=== PATIENT | male | born 1960 | race African-American/Black ===

== ENCOUNTER 2021-11-15 12:51 | Emergency (ER) | payer OTHER ==
[~2021-11-15] VITALS: Ht 180.3 cm; Wt 122.9 kg
[2021-11-15 13:59] LABS: BASOPHILS 0.4 % (0.0-2.0); EOSINOPHILS 2.2 % (0.0-3.0); HEMATOCRIT 41.4 % (42.0-52.0); HEMOGLOBIN 13.6 gm/dL (14.0-18.0); MCH 27.4 pg (26.0-34.0); MCHC 32.8 g/dL (28.0-37.0); MCV 83.5 fL (80.0-100.0); MONOCYTES 5.4 % (1.0-8.0); PLATELET COUNT 242 thou/uL (150-400); RBC 4.95 mil/uL (4.50-6.00); RDW 14.9 % (10.5-14.5); WBC 8.7 thou/uL (4.0-11.0)
[2021-11-15 14:22] LABS: CALCIUM 9.9 mg/dL (8.5-10.1); CREATININE 1.1 mg/dL (0.7-1.3); POTASSIUM 4.3 mmol/L (3.5-5.1)
[2021-11-15 14:32] LABS: ALBUMIN 3.5 g/dL (3.4-5.0); TOTAL BILIRUBIN 0.5 mg/dL (0.2-1.0); TOTAL PROTEIN 8.1 g/dL (6.4-8.2)
[2021-11-15 15:04] LABS: URINE BILIRUBIN NEGATIVE (Negative); URINE BLOOD NEGATIVE (Negative); URINE CLARITY CLEAR; URINE COLOR YELLOW; URINE GLUCOSE-RANDOM* NEGATIVE (Negative); URINE KETONES NEGATIVE (Negative); URINE LEUKOCYTES-REFLEX NEGATIVE (Negative); URINE NITRITE-REFLEX NEGATIVE (Negative); URINE PROTEIN (DIPSTICK) NEGATIVE (Negative); URINE SPECIFIC GRAVITY 1.015 (1.005-1.035); URINE UROBILINOGEN 0.2 E.U./dl (0.2-1.0)
[2021-11-15 16:11] VITALS: BP 122/71
--- NOTE | 2021-11-16 12:50 | EKG ---
[address] [place] [address] ELECTROCARDIOGRAM REPORT Name: MATTHEW ISABEL HAYDER Room #: [facility]P [facility] [id number] Admission: 11/15/21 Attend Phys: Discharge: 11/15/21 Date of : 58 Report #: [id number] [facility] ED Test Date: 2021-11-15 Test Time: 14:18:05 Pat Name: MATTHEW ISABEL Department: Room: Gender: Rn Ostomy: [facility] : 1960 Requested By: Malick Peoples Order Number: [id number] MD: Silverio Gilbert Measurements Intervals [place] Rate: 71 P: 2 UT: 141 QRS: 40 QRSD: 98 T: 7 QT: 382 QTc: 416 Interpretive Statements Sinus rhythm No previous ECG available for comparison Electronically Signed On 11-16-2021 12:50:15 MUSEUM HOST/HOSTESS by Silverio Gilbert [email or web address] <ELECTRONICALLY SIGNED> By: Silverio Gilbert MD, [facility] 11/16/21 1250 1418 1418 Silverio Gilbert MD, FACC /EPI
== END 2021-11-15 16:15 | disposition home or self-care (01) ==
LOC: ER 12:51
PROVIDERS: Emergency Medicine
DX: K46.9 Unspecified abdominal hernia without obstruction or gangrene (principal); R10.32 Left lower quadrant pain

== ENCOUNTER → 2022-01-06 | Day surgery (SDC) | payer OTHER ==
[~2022-01-06] VITALS: Ht 182.9 cm; Wt 122.5 kg
[~2022-01-06] MED LIST: ATORVASTATIN CA20 MG PO; GLIMEPIRIDE4 MG PO; LOSARTAN POTAS100 MG PO; OZEMPIC1 MG/0.71 INH; ZYRTEC10 M4 PO
[2022-01-06 07:59] VITALS: BP 145/69
[2022-01-06 10:46] VITALS: BP 145/69
--- NOTE | 2022-01-06 12:18 | O ---
[facility] [place] [address] OPERATIVE REPORT Name: MATTHEW ISABEL Room #: REG [facility] M.R.#: [id number] Admission: 01/06/22 Attend Phys: Sabas Villanueva MD Discharge: Date of : 58 Report #: [id number] THIS REPORT FOR: cc: Russ Ruiz MD, Michael B. MD Franey, Thomas A. MD ~ cc: Russ Ruiz MD DATE OF SERVICE: 01/06/2022 PATIENT OF: Dr. Russ Ruiz. PREOPERATIVE DIAGNOSIS: Right inguinal hernia. POSTOPERATIVE DIAGNOSIS: Right inguinal hernia. PROCEDURE: Right inguinal hernia repair with Prolene hernia system mesh. SURGEON: Sabas Villanueva MD ANESTHESIA USED: Local IV sedation. DESCRIPTION OF PROCEDURE: The patient was brought to the operating room and placed on the operating table in the supine position. Sequential compression devices were in place for DVT prophylaxis. There was no indication for preoperative antibiotics. The patient underwent IV sedation. The right inguinal area was prepped and draped in a sterile fashion. Skin and subcutaneous tissue were then infiltrated with 0.5% Marcaine and 1% Xylocaine with epinephrine. Right inguinal skin incision was then performed using #10 scalpel blade. Hemostasis obtained using the electrocautery. Dissection was carried down through subcutaneous tissue, the external oblique fascia, which was then incised with a knife and opened with the Metzenbaum scissors. The cord was dissected free and elevated up and held in place with Maryann drain. Cremasteric muscle fibers were then split in the direction of their fibers using clamp and electrocautery. There was no evidence of any indirect inguinal hernia sac. There was a direct inguinal hernia defect. This hernia sac was dissected free and reduced back through the hernia defect into the preperitoneal space. An extended Prolene hernia system mesh was then inserted through the fascial defect and the underlay patch was then deployed in the preperitoneal space and the connector was left in the hernia defect. The overlay patch was then deployed into the inguinal canal and secured to the pubic tubercle with a 2-0 Vicryl suture. The mesh was then secured superiorly and at the connector using simple interrupted 2-0 Vicryl sutures. The mesh was split and wrapped around the cord and secured to the inguinal ligament with a 2-0 Vicryl suture. The cord was then returned to the canal intact. The external oblique fascia was then closed using a running 2-0 Vicryl suture. Sky's fascia was then [facility] [address] [place] [address] OPERATIVE REPORT Name: MATTHEW ISABEL [id number] Admission: 01/06/22 Attend Phys: Sabas Villanueva MD Discharge: Date of : 58 Report #: [id number] reapproximated using 3 simple interrupted 2-0 chromic sutures and the skin then closed with a running 4-0 subcuticular Vicryl stitch. The wound was then dressed with Mastisol, 1/2-inch Steri-Strips cut in half, Telfa, 4 x 4 gauze, sponge, and tape. The patient was then awakened from the IV sedation and taken to recovery room awake, alert and in good condition. Estimated blood loss was approximately 5 mL and the patient tolerated the procedure well. All sponge, lap and instrument counts were correct x2. <ELECTRONICALLY SIGNED> By: Sabas Villanueva MD 01/06/22 1218 0938 1048 Sabas Villanueva MD /nt
== END | disposition home or self-care (01) ==
LOC: OR 06:24
PROVIDERS: ATTEND Surgery
DX: K40.90 Unilateral inguinal hernia, without obstruction or gangrene, not specified as recurrent (principal); I10 Essential (primary) hypertension; E78.5 Hyperlipidemia, unspecified; E11.9 Type 2 diabetes mellitus without complications; Z98.890 Other specified postprocedural states; Z79.899 Other long term (current) drug therapy; Z87.891 Personal history of nicotine dependence; Z20.822 Contact with and (suspected) exposure to COVID-19; Z96.1 Presence of intraocular lens
CPT/HCPCS: 50010; 50101; 50386; 50403; 56524; 56526; 56528; 58646; 62110; 62850; 70005